=== PATIENT | male | born 1935 | race Caucasian/White ===

== ENCOUNTER 2017-08-02 14:24 | Inpatient (IN) ==
--- NOTE | 2017-08-03 14:21 | Internal Med History&Physical ---
Date of Encounter: 08/03/17 Time of Encounter: 14:19 Assessment and Plan (1) Status post total left knee replacement Current visit: Yes Status: Acute continue current pain meds. PT/OT eval and treat. f/u with ortho as scheduled. (2) COPD (chronic obstructive pulmonary disease) Current visit: No Status: Chronic stable. continue inhaled meds Qualifiers: COPD type: emphysema Emphysema type: unspecified Qualified Code(s): J43.9 - Emphysema, unspecified (3) Hypertension Current visit: No Status: Chronic controlled with current meds. monitor BP Qualifiers: Hypertension type: essential hypertension Qualified Code(s): I10 - Essential (primary) hypertension Internal Medicine - H&P: HPI Chief complaint: s/p LTKR Admitted From: Hospital to Hospital Transfer Plans for Post Hospital Care: Home History of present illness: Mr. Terrazas is a 82 year old male presents to rehab for PT/OT s/p left TKR on . past medical hx includes: COPD, HTN, sleep apnea, RTKR. states pain is controlled with current pain meds. appetite and hydration maintained. last BM this am after having an enema. denies fever, chills, NVD, SOB or chest pain. / Past Med Surg Social Fam HX - Past Medical History Medical history: asthma, COPD, hypertension, other Psychiatric history: no psych history - Past Surgical History Surgical History: orthopedic, other - Social History Smoking Status: Never smoker Smokeless Tobacco Status: No Alcohol use: none Drug use: none Internal Medicine - H&P: Meds Albuterol Sulfate [Proair Hfa] 2 puff IH Q4H PRN 04/13/16 [History] Amlodipine Besylate 10 mg PO DAILY 04/13/16 [History] Aspirin 81 mg PO 2100 04/13/16 [History] Atenolol [Tenormin] 50 mg PO TID 04/13/16 [History] Budesonide/Formoterol 160/4.5 [Symbicort 160/4.5] 2 puff IH BIDR 04/13/16 [ History] Fluticasone Propionate [Flonase Allergy Relief] 1 spray NS DAILY 04/13/16 [ History] Lisinopril/Hydrochlorothiazide [Zestoretic 10-12.5 mg Tablet] 1 each PO DAILY [History] Loratadine [Claritin] 10 mg PO 1200 04/13/16 [History] Montelukast Sodium 10 mg PO DAILY 04/13/16 [History] Multivitamin [Multivitamins] 1 each PO DAILY 04/13/16 [History] Naproxen Sodium [Aleve] 220 mg PO Q6HR PRN 04/13/16 [History] Ipratropium/Albuterol Neb [Duoneb] 3 ml IH Q6HR PRN 04/14/16 [History] Allopurinol [Zyloprim] 300 mg PO 1200 08/03/17 [History] Latanoprost [Xalatan] 2.5 ml OP 2100 08/03/17 [History] Tamsulosin HCl [Flomax] 0.4 mg PO HS 08/03/17 [History] Timolol [Betimol] 1 drop OP DAILY 08/03/17 [History] Umeclidinium Greene [Incruse Ellipta] 62.5 mcg IH DAILY 08/03/17 [History] 3 Allergy/AdvReac Type Severity Reaction Status Date / Time No Known Allergies Allergy Unverified 12/29/15 13:48 All Systems PM: A 10-system review of systems was performed and is negative for pertinent findings except as documented above in the HPI. - Constitutional Constitutional: no chills, no fever(s), no night sweats - EENT Eyes: no change in vision, no discharge, no pain, no photophobia Ears: no ear discharge, no ear pain, no tinnitus Nose, mouth and throat: no dysphagia, no nasal discharge, no neck pain, no sore throat - Cardiovascular Cardiovascular ROS IM: no chest pain, no diaphoresis, no dyspnea, no lightheadedness, no palpitations, no syncope - Respiratory Respiratory: no cough, no dyspnea, no wheezing, no excessive phlegm production - Gastrointestinal Gastrointestinal: no abdominal pain, no diarrhea, no hematemesis, no hematochezia, no melena, no nausea, no vomiting - Musculoskeletal Musculoskeletal ROS IM: no numbness, no tingling - Integumentary Integumentary IM: no rash, no unusual bruising - Neurological Neurological ROS: no confusion, no convulsions, no focal weakness, no numbness, no tingling, no tremor(s) - Hematologic/Lymphatic Hematologic/Lymphatic: no easy bruising - Constitutional Vitals: Temp Pulse Resp BP Pulse Ox 98.1 F 60 16 104/59 91 08/03/17 12:31 08/03/17 12:31 08/03/17 12:31 08/03/17 12:31 08/03/17 12:31 General appearance: Present: A&O X 3, pleasant, no acute distress, answers questions appropriately - Head Head exam: Present: atraumatic, normocephalic - Eye Eye exam: Present: PERRL, conjuntiva pink, sclera anicteric Pupils: Present: PERRL - Neck Neck exam general surgery: Present: supple, trachea midline. Absent: lymphadenopathy - Respiratory Respiratory exam: Present: CTAB. Absent: accessory muscle use, rales, rhonchi, wheezes - Cardiovascular Cardiovascular exam: Present: RRR, +S1, +S2. Absent: diastolic murmur, gallop, rubs, systolic murmur - GI/Abdominal GI/Abdominal exam: Present: normal bowel sounds, soft, no peritoneal signs. Absent: distended, tenderness - Extremities Exam Extremities exam: Present: warm, radial pulses palpable and symmetrical. Absent : calf tenderness, cyanotic, pedal edema Additional comments: left knee incision dry and intact. significant amt of bruising from thigh to khan area. small amt of edema surrounding knee. no signs of infection. - Neurological Exam Neurological exam: Present: CN II-XII intact, oriented X3, no focal deficits. Absent: pronater drift, facial droop, speech deficit - Skin Skin exam: Present: dry, intact
[2017-08-03] MEDS: *HR* OxyCODONE Immed Rel 5 MG TABLET PO PRN (17:07)
[2017-08-03] MEDS: Aspirin 81 MG TAB.CHEW PO SCH (22:40)
[2017-08-03] MEDS: Budesonide/Formoterol 160/4.5 MDI IH SCH (22:42)
[2017-08-03] MEDS: Latanoprost 2.5 ML BOTTLE BOTH EYES SCH (22:45)
[2017-08-03] MEDS: Ipratropium/Albuterol Neb 3 ML IH PRN (23:03)
[2017-08-04 05:11] LABS: Basophils % 0.1 %; Eosinophils # 0.1 K/mcL (0.0-0.6); Eosinophils % 1.4 %; Hematocrit 28.4 % (37.5-50.1); Immature Granulocytes % 0.6 % (0-4); Lymphocytes # 0.7 K/mcL (0.6-4.6); Lymphocytes % 8.7 %; Mean Corpuscular HGB Conc 35.2 g/dL (31.6-35.5); Mean Corpuscular Hemoglobin 31.5 pg (28.0-33.3); Mean Corpuscular Volume 89.6 fL (83.0-100.0); Monocytes # 0.8 K/mcL (0.0-1.3); Monocytes % 9.7 %; Neutrophils # 6.3 K/mcL (1.6-8.9); Platelet Count 186 K/mcL (140-400); Red Blood Count 3.17 M/mcL (4.19-5.50); Red Cell Distribution Width 14.3 % (11.5-14.5); Segmented Neutrophils % 79.5 %
[2017-08-04 05:17] LABS: INR 1.3; Prothrombin Time 13.7 Seconds (9.4-12.1)
[2017-08-04 05:20] LABS: Activated Partial Thrombo Time 27.4 Seconds (26.0-36.0)
[2017-08-04 05:26] LABS: Calcium 8.9 mg/dL (8.6-10.8); Potassium 3.8 mEq/L (3.5-4.5)
[2017-08-04] MEDS: *HR* OxyCODONE Immed Rel 5 MG TABLET PO PRN ×3 (07:19→16:38)
[2017-08-04] MEDS: Ipratropium/Albuterol Neb 3 ML IH PRN (08:55)
[2017-08-04] MEDS: Budesonide/Formoterol 160/4.5 MDI IH SCH ×2 (08:59→21:41)
[2017-08-04] MEDS: amLODIPine 5 MG TABLET PO SCH (09:18)
[2017-08-04] MEDS: (Umeclidinium Bromide [Incruse Ellipta] 62.5 MCG) IH SCH (09:18)
[2017-08-04] MEDS: Multivit/Ca/Min/Fe/FA 1 TAB TABLET PO SCH (09:18)
[2017-08-04] MEDS: Fluticasone Propionate Nasal 50 MCG/SPRAY BOTTLE NS SCH (09:19)
--- NOTE | 2017-08-04 12:55 | Internal Med Progress Note ---
Date of Encounter: 08/04/17 Time of Encounter: 12:52 - Assessment and plan (1) Status post total left knee replacement Current Visit: Yes Status: Acute Assessment and plan: Left knee remains slightly swollen with moderate amount of ecchymosis noted. Surgical incisions appear dry and intact. We will continue to mobilize patient with physical therapy. We will continue with icing machine while in bed. (2) BPH (benign prostatic hyperplasia) Current Visit: Yes Status: Acute Assessment and plan: Patient with symptoms that relate to a history of BPH. Patient currently on Flomax but states he has never seen a urologist in the past. Patient complaints of hesitation during urination and states he gets up 3-5 times during the night for urination. Patient obtained a bladder scan which showed no residual postvoid. We will continue on Flomax. We will obtain a PSA with morning labs. Qualifiers: Lower urinary tract symptom presence: symptoms present Lower urinary tract symptom detail: nocturia Qualified Code(s): N40.1 - Benign prostatic hyperplasia with lower urinary tract symptoms; R35.1 - Nocturia; R35.1 - Nocturia (3) COPD (chronic obstructive pulmonary disease) Current Visit: No Status: Chronic Assessment and plan: No acute issues. Patient denies any shortness of breath or productive cough. Lungs are clear throughout upper paige and diminished at the bases. We will continue on current medications Qualifiers: COPD type: emphysema Emphysema type: unspecified Qualified Code(s): J43.9 - Emphysema, unspecified (4) CHF (congestive heart failure) Current Visit: No Status: Acute Assessment and plan: No acute issues. Patient's lungs are clear with diminished bases. Patient denies any dyspnea on exertion or orthopnea. We will continue on current medications. Qualifiers: Congestive heart failure type: systolic Congestive heart failure chronicity : unspecified congestive heart failure chronicity Qualified Code(s): I50.20 - Unspecified systolic (congestive) heart failure (5) Hypertension Current Visit: No Status: Chronic Assessment and plan: Vital signs are stable. We will continue on current medications. Qualifiers: Hypertension type: essential hypertension Qualified Code(s): I10 - Essential (primary) hypertension - Subjective Interval history: Patient states that his pain to his left knee has been minimal and well controlled with current medications. Patient states he has slight limited range of motion due to swelling on left knee. Left knee continues with the continuous icing. Patient does complain of recent hesitation during urination. Upon questioning patient relates long history of nocturia - Constitutional Vitals: Temp Pulse Resp BP Pulse Ox 97.7 F 64 16 122/67 92 08/04/17 11:54 08/04/17 11:54 08/04/17 11:54 08/04/17 11:54 08/04/17 11:54 General appearance: Present: A&O X 3, pleasant, no acute distress, answers questions appropriately - Head Head exam: Present: atraumatic, normocephalic - Eye Eye exam: Present: PERRL, conjuntiva pink, sclera anicteric Pupils: Present: PERRL - Neck Neck exam general surgery: Present: supple, trachea midline. Absent: lymphadenopathy - Respiratory Respiratory exam: Present: CTAB. Absent: accessory muscle use, rales, rhonchi, wheezes - Cardiovascular Cardiovascular exam: Present: RRR, +S1, +S2. Absent: diastolic murmur, gallop, rubs, systolic murmur - GI/Abdominal GI/Abdominal exam: Present: normal bowel sounds, soft, no peritoneal signs. Absent: distended, tenderness - exam: Present: normal inspection Additional comments: Patient had bladder scan that was performed which showed no residual - Extremities Exam Extremities exam: Present: warm, radial pulses palpable and symmetrical. Absent : calf tenderness, cyanotic, pedal edema - Neurological Exam Neurological exam: Present: CN II-XII intact, oriented X3, no focal deficits. Absent: pronater drift, facial droop, speech deficit - Skin Skin exam: Present: dry, intact Internal Medicine: Result - Labs CBC & Chem 7: 08/04/17 04:30 08/04/17 04:30 Labs: Short CBC 08/04/17 Range/Units 04:30 WBC 7.9 (4.3-11.1) K/mcL Hgb 10.0 L (12.9-16.9) g/dL Hct 28.4 L (37.5-50.1) % Plt Count 186 (140-400) K/mcL Neutrophils # 6.3 (1.6-8.9) K/mcL BMP 08/04/17 04:30 Sodium 128 L Potassium 3.8 Chloride 89 L Carbon Dioxide 28 BUN 49 H Creatinine 1.64 H Glucose 110 H Calcium 8.9 - ABG Interpretation ABG results: PT/INR, D-dimer PT 13.7 Seconds (9.4-12.1) H 08/04/17 04:30 - VTE Documentation of Mechanical Device: Graduated compression elastic hosiery Consult Discharge Plan - Plan Referrals: Carl Camp MD [Primary Care Provider] -
[2017-08-04] MEDS: Loratadine 10 MG TABLET PO SCH (13:23)
[2017-08-04 20:33] LABS: Bilirubin,Urine Negative (Negative); Blood,Urine Negative (Negative); Clarity,Urine Clear (Clear); Color,Urine Amber (Yellow); Glucose,Urine (UA) Normal (Normal); Ketones,Urine Negative (Negative); Leukocyte Esterase,Urine Negative (Negative); Nitrite,Urine Negative (Negative); Protein,Urine Negative (Neg-Trace); Urobilinogen,Urine Normal (Normal)
[2017-08-04] MEDS: Latanoprost 2.5 ML BOTTLE BOTH EYES SCH (21:41)
[2017-08-04] MEDS: Aspirin 81 MG TAB.CHEW PO SCH (21:41)
[2017-08-05 05:51] LABS: Albumin 2.9 g/dL (3.5-5.0); Albumin/Globulin Ratio 0.9 (1.1-2.2); Bilirubin,Total 1.5 mg/dL (0.2-1.2); Calcium 8.7 mg/dL (8.6-10.8); Globulin 3.2 g/dL (2.4-3.5); Potassium 3.8 mEq/L (3.5-4.5); Total Protein 6.1 g/dL (6.0-8.3)
[2017-08-05] MEDS: Budesonide/Formoterol 160/4.5 MDI IH SCH ×2 (10:10→22:50)
[2017-08-05] MEDS: (Umeclidinium Bromide [Incruse Ellipta] 62.5 MCG) IH SCH (10:11)
[2017-08-05] MEDS: Ipratropium/Albuterol Neb 3 ML IH PRN (10:56)
[2017-08-05] MEDS: Acetaminophen 325 MG TABLET PO SCH ×2 (10:59→18:54)
[2017-08-05] MEDS: amLODIPine 5 MG TABLET PO SCH (10:59)
[2017-08-05] MEDS: Fluticasone Propionate Nasal 50 MCG/SPRAY BOTTLE NS SCH (11:00)
[2017-08-05] MEDS: Multivit/Ca/Min/Fe/FA 1 TAB TABLET PO SCH (11:00)
[2017-08-05] MEDS ORDERED: Furosemide 20 MG TABLET PO ONE (11:41)
--- NOTE | 2017-08-05 11:51 | Internal Med Progress Note ---
Date of Encounter: 08/05/17 Time of Encounter: 11:49 - Assessment and plan (1) Status post total left knee replacement Current Visit: Yes Status: Acute Assessment and plan: -Left knee remains slightly swollen with moderate amount of ecchymosis noted. -Surgical incisions appear dry and intact. -We will continue to mobilize patient with physical therapy. -We will continue with icing machine while in bed. (2) Hyponatremia Current Visit: Yes Status: Acute Assessment and plan: - hypotonic, in the setting of CHF and RICHARD - Echo reviewed back in may showed diastolic CHF - Unsure of dry weight - discontinued Naproxyen and started Tylenol - correction of the underlying conditions and will recheck tomorrow morning with another BMP (3) Acute on chronic kidney failure Current Visit: Yes Status: Acute Assessment and plan: - most likely pre-renal in the setting of diastolic renal failure, mild to moderate - unsure if chronic failure is also present - correction of CHF related fluid overload and will recheck labs tomorrow with BMP Qualifiers: Acute renal failure type: unspecified Chronic kidney disease stage: stage 3 (moderate) Qualified Code(s): N17.9 - Acute kidney failure, unspecified; N18.3 - Chronic kidney disease, stage 3 (moderate); N18.3 - Chronic kidney disease, stage 3 (moderate) (4) Hypoxia Current Visit: No Status: Acute Assessment and plan: - unsure if chronic vs acute on chronic - PE showed clear lungs bilaterally - continue with oxygen as needed, with titration per nursing - if anxiety related to COPD, pt can take xanax 0.25mg short acting to calm him down. discussed to only use in extreme cases (5) Constipation Current Visit: Yes Status: Acute Assessment and plan: - restarting stool softeners - senna Qualifiers: Constipation type: drug induced constipation Qualified Code(s): K59.03 - Drug induced constipation (6) COPD (chronic obstructive pulmonary disease) Current Visit: No Status: Chronic Assessment and plan: - Controlled hypoxia -Patient denies any shortness of breath or productive cough. -Lungs are clear throughout upper paige and diminished at the bases. -We will continue on current medications Qualifiers: COPD type: emphysema Emphysema type: unspecified Qualified Code(s): J43.9 - Emphysema, unspecified (7) Hypertension Current Visit: No Status: Chronic Assessment and plan: Vital signs are stable. We will continue on current medications. Qualifiers: Hypertension type: essential hypertension Qualified Code(s): I10 - Essential (primary) hypertension (8) CHF (congestive heart failure) Current Visit: No Status: Acute Assessment and plan: Echo reviewed - strict in/out and daily weights - 20mg of lasix PO to diurese some of the fluids out and help overall hyponatremia and RICHARD - Continue to monitor labs daily and will add BNP Qualifiers: Congestive heart failure type: diastolic Congestive heart failure chronicity: unspecified congestive heart failure chronicity Qualified Code(s) : I50.30 - Unspecified diastolic (congestive) heart failure (9) BPH (benign prostatic hyperplasia) Current Visit: Yes Status: Acute Assessment and plan: Patient with symptoms that relate to a history of BPH. Patient currently on Flomax but states he has never seen a urologist in the past. Patient complaints of hesitation during urination and states he gets up 3-5 times during the night for urination. Patient obtained a bladder scan which showed no residual postvoid. We will continue on Flomax. We will obtain a PSA with morning labs. Qualifiers: Lower urinary tract symptom presence: symptoms present Lower urinary tract symptom detail: nocturia Qualified Code(s): N40.1 - Benign prostatic hyperplasia with lower urinary tract symptoms; R35.1 - Nocturia; R35.1 - Nocturia - Time Spent With Patient 25 - 35 minutes - Subjective Interval history: pt seen in rehab, participating with exercises. Reporting getting shortness of breath. Also indicated uncontrolled pain in the left lower extremity and some blistering. He did report increase in swelling in the lower extremity as well. apetiet is intact, but hasn't had a BM for a while now. Per nursing, had diarrhea in the past couple of days secondary to stool softners which was discontinued. He is still taking narcaotics and that might have delayed his BM - Constitutional Vitals: Temp Pulse Resp BP Pulse Ox 97.9 F 53 16 107/65 97 08/05/17 07:25 08/05/17 07:25 08/05/17 07:25 08/05/17 07:25 08/05/17 07:25 General appearance: Present: A&O X 3, pleasant, no acute distress, answers questions appropriately - Head Head exam: Present: atraumatic, normocephalic - Eye Eye exam: Present: PERRL, conjuntiva pink, sclera anicteric Pupils: Present: PERRL - Neck Neck exam general surgery: Present: supple, trachea midline. Absent: lymphadenopathy - Respiratory Respiratory exam: Present: CTAB. Absent: accessory muscle use, rales, rhonchi, wheezes - Cardiovascular Cardiovascular exam: Present: RRR, +S1, +S2. Absent: diastolic murmur, gallop, rubs, systolic murmur - GI/Abdominal GI/Abdominal exam: Present: distended, normal bowel sounds, soft, no peritoneal signs. Absent: tenderness - Extremities Exam Additional comments: lower left extremity swollen at the site of the knee surgical sight. There is + 2 pitting edema bilaterally. There is left medial bulla, none friable/intact. Appears to be related to skin trauma at this time - Skin Skin exam: Present: vesicles Additional comments: Bulla as indicated above Internal Medicine: Result - Labs CBC & Chem 7: 08/04/17 04:30 08/05/17 05:00 Labs: BMP 08/05/17 05:00 Sodium 124 L Potassium 3.8 Chloride 88 L Carbon Dioxide 25 BUN 63 H D Creatinine 1.75 H Glucose 104 H Calcium 8.7 Liver Function 08/05/17 Range/Units 05:00 Total Bilirubin 1.5 H (0.2-1.2) mg/dL AST 24 (5-34) Units/L ALT 15 (0-55) Units/L Alkaline Phosphatase 84 (38-126) Units/L Albumin 2.9 L (3.5-5.0) g/dL Urine 08/04/17 Range/Units 19:00 Urine Color Angelique A (Yellow) Urine Clarity Clear (Clear) Urine pH 5.0 (5.0-8.0) pH Units Ur Specific [place] 1.020 (1.010-1.025) Urine Protein Negative (Neg-Trace) mg/dL Urine Glucose (UA) Normal (Normal) mg/dL - ABG Interpretation ABG results: PT/INR, D-dimer PT 13.7 Seconds (9.4-12.1) H 08/04/17 04:30 - VTE Documentation of Mechanical Device: Graduated compression elastic hosiery Consult Discharge Plan - Plan Referrals: Carl Camp MD [Primary Care Provider] -
[2017-08-05] MEDS: Sennosides 8.6 MG TABLET PO SCH (14:50)
[2017-08-05] MEDS: Loratadine 10 MG TABLET PO SCH (14:51)
[2017-08-05] MEDS: Latanoprost 2.5 ML BOTTLE BOTH EYES SCH (22:50)
[2017-08-05] MEDS: Aspirin 81 MG TAB.CHEW PO SCH (22:50)
[2017-08-06] MEDS: Acetaminophen 325 MG TABLET PO SCH ×3 (01:00→17:01)
[2017-08-06] MEDS: *HR* OxyCODONE Immed Rel 5 MG TABLET PO PRN ×2 (01:54→22:50)
[2017-08-06 05:10] LABS: Hematocrit 28.6 % (37.5-50.1); Mean Corpuscular Hemoglobin 31.1 pg (28.0-33.3); Mean Corpuscular Volume 88.8 fL (83.0-100.0); Mean Platelet Volume 9.3 fL (9.4-12.4); Platelet Count 175 K/mcL (140-400); Red Blood Count 3.22 M/mcL (4.19-5.50); Red Cell Distribution Width 14.2 % (11.5-14.5)
[2017-08-06 09:39] LABS: Calcium 8.3 mg/dL (8.6-10.8); Potassium 3.7 mEq/L (3.5-4.5)
[2017-08-06] MEDS: Sennosides 8.6 MG TABLET PO SCH (10:06)
[2017-08-06] MEDS: amLODIPine 5 MG TABLET PO SCH (10:06)
[2017-08-06] MEDS: Multivit/Ca/Min/Fe/FA 1 TAB TABLET PO SCH (10:06)
[2017-08-06] MEDS: Fluticasone Propionate Nasal 50 MCG/SPRAY BOTTLE NS SCH (10:07)
[2017-08-06] MEDS: (Umeclidinium Bromide [Incruse Ellipta] 62.5 MCG) IH SCH (10:07)
[2017-08-06] MEDS: Budesonide/Formoterol 160/4.5 MDI IH SCH ×2 (10:07→22:49)
[2017-08-06] MEDS ORDERED: Furosemide 20 MG TABLET PO ONE (11:20)
--- NOTE | 2017-08-06 11:20 | Internal Med Progress Note ---
Date of Encounter: 08/06/17 Time of Encounter: 11:18 - Assessment and plan (1) Status post total left knee replacement Current Visit: Yes Status: Acute Assessment and plan: -Left knee remains slightly swollen with moderate amount of ecchymosis noted. -Surgical incisions appear dry and intact. -We will continue to mobilize patient with physical therapy. -We will continue with icing machine while in bed. (2) Hyponatremia Current Visit: Yes Status: Acute Assessment and plan: - hypotonic, in the setting of CHF and RICHARD - Echo reviewed back in may showed diastolic CHF - Unsure of dry weight at this time - discontinued Naproxyen and started Tylenol - correction of the underlying conditions - Stable at 124, will continue to monitor daily (3) Acute on chronic kidney failure Current Visit: Yes Status: Acute Assessment and plan: - most likely pre-renal in the setting of diastolic heart failure, mild to moderate - unsure if chronic kidney failureis present and pt denied being told that in the past, unsure of what baseline Cr is - Continue to correct CHF, pt responding to diuretics - Improved Cr Qualifiers: Acute renal failure type: unspecified Chronic kidney disease stage: stage 3 (moderate) Qualified Code(s): N17.9 - Acute kidney failure, unspecified; N18.3 - Chronic kidney disease, stage 3 (moderate); N18.3 - Chronic kidney disease, stage 3 (moderate) (4) Hypoxia Current Visit: No Status: Acute Assessment and plan: - unsure if chronic vs acute on chronic - PE showed clear lungs bilaterally - continue with oxygen as needed, with titration per nursing - if anxiety related to COPD, pt can take xanax 0.25mg short acting to calm him down. discussed to only use in extreme cases (5) Constipation Current Visit: Yes Status: Acute Assessment and plan: - restarting stool softeners - senna - added miralax daily now Qualifiers: Constipation type: drug induced constipation Qualified Code(s): K59.03 - Drug induced constipation (6) COPD (chronic obstructive pulmonary disease) Current Visit: No Status: Chronic Assessment and plan: - Controlled hypoxia -Patient denies any shortness of breath or productive cough. -Lungs are clear throughout upper pa[place] and diminished at the bases. -We will continue on current medications Qualifiers: COPD type: emphysema Emphysema type: unspecified Qualified Code(s): J43.9 - Emphysema, unspecified (7) Hypertension Current Visit: No Status: Chronic Assessment and plan: Vital signs are stable. - may hold off on meds if low BP Qualifiers: Hypertension type: essential hypertension Qualified Code(s): I10 - Essential (primary) hypertension (8) CHF (congestive heart failure) Current Visit: No Status: Acute Assessment and plan: Echo reviewed - strict in/out and daily weights - 20mg of lasix PO to diurese yesterday, resulted in improved Cr - Unsure of output, but pt weight dropped from 106.5 to 103.9 - Improved Cr - BNP elevated at 300+ in the setting of obesity, suggestive of acute exacerbation - Give diastolic failure, with preserved EF, will continue to diurese gently - Continue to monitor labs daily Qualifiers: Congestive heart failure type: diastolic Congestive heart failure chronicity: unspecified congestive heart failure chronicity Qualified Code(s) : I50.30 - Unspecified diastolic (congestive) heart failure (9) BPH (benign prostatic hyperplasia) Current Visit: Yes Status: Acute Assessment and plan: Patient with symptoms that relate to a history of BPH. Patient currently on Flomax but states he has never seen a urologist in the past. Patient complaints of hesitation during urination and states he gets up 3-5 times during the night for urination. Patient obtained a bladder scan which showed no residual postvoid. We will continue on Flomax. - Elevated PSA at 8+. No signs of urinary obstruction - Will defer to outpatient management of this elevated PSA Qualifiers: Lower urinary tract symptom presence: symptoms present Lower urinary tract symptom detail: nocturia Qualified Code(s): N40.1 - Benign prostatic hyperplasia with lower urinary tract symptoms; R35.1 - Nocturia; R35.1 - Nocturia - Time Spent With Patient 25 - 35 minutes - Subjective Interval history: pt seen in his room, eating breakfast, and reports that he feels much better today. reported that he has been able to urinate adequate amounts of urine. His appetie is somewhat down, but still able to eat, denied any CP/SOB - He had BM yesterday and reported that he was able to tolerate the Stool softener - Constitutional Vitals: Temp Pulse Resp BP Pulse Ox 97.9 F 60 18 112/57 96 08/05/17 19:00 08/05/17 19:00 08/05/17 19:00 08/05/17 19:00 08/05/17 19:00 General appearance: Present: A&O X 3, pleasant, no acute distress, answers questions appropriately - Head Head exam: Present: atraumatic, normocephalic - Eye Eye exam: Present: PERRL, conjuntiva pink, sclera anicteric Pupils: Present: PERRL - Neck Neck exam general surgery: Present: supple, trachea midline. Absent: lymphadenopathy - Respiratory Respiratory exam: Present: CTAB. Absent: accessory muscle use, rales, rhonchi, wheezes - Cardiovascular Cardiovascular exam: Present: RRR, +S1, +S2. Absent: diastolic murmur, gallop, rubs, systolic murmur - GI/Abdominal GI/Abdominal exam: Present: normal bowel sounds, soft, no peritoneal signs. Absent: distended, tenderness - Extremities Exam Extremities exam: Present: joint swelling, pedal edema, tenderness, warm Additional comments: couple of large vessicles consistent with traumatic bulla, stable from yesterday Pitting edema improved from yesterday, still 1+ at least on the right and 2+ on the left - Neurological Exam Neurological exam: Present: CN II-XII intact, oriented X3, no focal deficits. Absent: pronater drift, facial droop, speech deficit - Skin Skin exam: Present: dry, intact Internal Medicine: Result - Labs CBC & Chem 7: 08/06/17 05:04 08/06/17 05:04 Labs: Short CBC 08/06/17 Range/Units 05:04 WBC 5.8 (4.3-11.1) K/mcL Hgb 10.0 L (12.9-16.9) g/dL Hct 28.6 L (37.5-50.1) % Plt Count 175 (140-400) K/mcL BMP 08/06/17 05:04 Sodium 124 L Potassium 3.7 Chloride 89 L Carbon Dioxide 23 BUN 63 H Creatinine 1.46 H Glucose 110 H Calcium 8.3 L - ABG Interpretation ABG results: PT/INR, D-dimer PT 13.7 Seconds (9.4-12.1) H 08/04/17 04:30 - VTE Documentation of Mechanical Device: Graduated compression elastic hosiery Consult Discharge Plan - Plan Referrals: Carl Camp MD [Primary Care Provider] -
[2017-08-06] MEDS: Loratadine 10 MG TABLET PO SCH (13:54)
[2017-08-06] MEDS: Aspirin 81 MG TAB.CHEW PO SCH (22:48)
[2017-08-06] MEDS: Latanoprost 2.5 ML BOTTLE BOTH EYES SCH (22:49)
[2017-08-06] MEDS: ALPRAZolam 0.25 MG TABLET PO PRN (22:50)
[2017-08-06] MEDS: Ipratropium/Albuterol Neb 3 ML IH PRN (22:50)
[2017-08-07] MEDS: Acetaminophen 325 MG TABLET PO SCH ×3 (02:15→16:40)
[2017-08-07 05:26] LABS: Basophils % 0.2 %; Eosinophils # 0.1 K/mcL (0.0-0.6); Eosinophils % 1.5 %; Hematocrit 30.6 % (37.5-50.1); Hemoglobin 10.5 g/dL (12.9-16.9); Immature Granulocytes % 0.5 % (0-4); Lymphocytes # 0.6 K/mcL (0.6-4.6); Lymphocytes % 11.5 %; Mean Corpuscular HGB Conc 34.3 g/dL (31.6-35.5); Mean Corpuscular Hemoglobin 30.8 pg (28.0-33.3); Mean Corpuscular Volume 89.7 fL (83.0-100.0); Mean Platelet Volume 9.6 fL (9.4-12.4); Monocytes # 0.6 K/mcL (0.0-1.3); Neutrophils # 4.2 K/mcL (1.6-8.9); Platelet Count 202 K/mcL (140-400); Red Blood Count 3.41 M/mcL (4.19-5.50); Red Cell Distribution Width 14.3 % (11.5-14.5); Segmented Neutrophils % 76.3 %
[2017-08-07] MEDS: *HR* OxyCODONE Immed Rel 5 MG TABLET PO PRN (05:26)
[2017-08-07 05:47] LABS: Chloride 92 mEq/L (98-109); Potassium 3.4 mEq/L (3.5-4.5); Sodium 130 mEq/L (136-145)
[2017-08-07 05:48] LABS: BUN/Creatinine Ratio 44 (6-26); Blood Urea Nitrogen 47 mg/dL (8-26); Calcium 8.9 mg/dL (8.6-10.8); Carbon Dioxide 26 mEq/L (19-29); Glucose 104 mg/dL (70-99); Osmolality,Calculated 283 (280-300); eGFR For African Americans > 60 (> 60); eGFR For Non-African Americans > 60 (> 60)
[2017-08-07] MEDS: Multivit/Ca/Min/Fe/FA 1 TAB TABLET PO SCH (08:29)
[2017-08-07] MEDS: amLODIPine 5 MG TABLET PO SCH (08:30)
[2017-08-07] MEDS: Fluticasone Propionate Nasal 50 MCG/SPRAY BOTTLE NS SCH (08:33)
[2017-08-07] MEDS: Sennosides 8.6 MG TABLET PO SCH (08:33)
[2017-08-07] MEDS: (Umeclidinium Bromide [Incruse Ellipta] 62.5 MCG) IH SCH (08:33)
[2017-08-07] MEDS: Budesonide/Formoterol 160/4.5 MDI IH SCH ×2 (08:43→21:09)
[2017-08-07] MEDS: Loratadine 10 MG TABLET PO SCH (11:58)
--- NOTE | 2017-08-07 14:22 | Internal Med Progress Note ---
Date of Encounter: 08/07/17 Time of Encounter: 14:20 - Assessment and plan (1) Status post total left knee replacement Current Visit: Yes Status: Acute Assessment and plan: -Left knee remains slightly swollen with moderate amount of ecchymosis noted. -Surgical incisions appear dry and intact. -We will continue to mobilize patient with physical therapy. -We will continue with icing machine while in bed. (2) Hyponatremia Current Visit: Yes Status: Acute Assessment and plan: - hypotonic, in the setting of CHF and RICHARD initially - Echo reviewed back in may showed diastolic CHF - Unsure of dry weight still - discontinued Naproxyen and started Tylenol TID scheduled, discussed with pt to stay away from scheduled NSAIDS in the future - correction of the underlying conditions - Improved to 130 now, will continue to monitor daily (3) Acute kidney failure Current Visit: Yes Status: Acute Assessment and plan: - Pt had an elevated Cr at max of 1.7 - Pre-renal RICHARD, most likely in the setting of CHF along with renal due to NSAIDS - Resopnded well to diuresis and stopped naproxen - Now resolved with Cr. 1.0 Qualifiers: Acute renal failure type: unspecified Qualified Code(s): N17.9 - Acute kidney failure, unspecified (4) Hypoxia Current Visit: No Status: Acute Assessment and plan: - unsure if chronic vs acute on chronic, but CHF could have caused some of this to a degree - PE showed clear lungs bilaterally - if anxiety related to COPD, pt can take xanax 0.25mg short acting to calm him down. discussed to only use in extreme cases - Now on RA, will continue to monitor (5) Constipation Current Visit: Yes Status: Acute Assessment and plan: - restarting stool softeners - senna - added miralax daily now Qualifiers: Constipation type: drug induced constipation Qualified Code(s): K59.03 - Drug induced constipation (6) COPD (chronic obstructive pulmonary disease) Current Visit: No Status: Chronic Assessment and plan: - Controlled hypoxia -Patient denies any shortness of breath or productive cough. -Lungs are clear throughout upper paige and diminished at the bases. -We will continue on current medications Qualifiers: COPD type: emphysema Emphysema type: unspecified Qualified Code(s): J43.9 - Emphysema, unspecified (7) Hypertension Current Visit: No Status: Chronic Assessment and plan: Vital signs are stable. - may hold off on meds if low BP Qualifiers: Hypertension type: essential hypertension Qualified Code(s): I10 - Essential (primary) hypertension (8) CHF (congestive heart failure) Current Visit: No Status: Acute Assessment and plan: Echo reviewed - strict in/out and daily weights - 20mg of lasix PO to diurese on two days, resulted in improved Cr - Unsure of weight, but pt appear to have diuresed a total of 1.8L - BNP elevated at 300+ in the setting of obesity, suggestive of acute exacerbation - Given that RICHARD has resolved, will only institute fluid restrictions, set to 2L daily - Continue to monitor labs daily, anticipate that this will continue to resolve on its own, if worsening, would recommend gentle diuretic of 20mg lasix PO Qualifiers: Congestive heart failure type: diastolic Congestive heart failure chronicity: unspecified congestive heart failure chronicity Qualified Code(s) : I50.30 - Unspecified diastolic (congestive) heart failure (9) BPH (benign prostatic hyperplasia) Current Visit: Yes Status: Acute Assessment and plan: Patient with symptoms that relate to a history of BPH. Patient currently on Flomax but states he has never seen a urologist in the past. Patient complaints of hesitation during urination and states he gets up 3-5 times during the night for urination. Patient obtained a bladder scan which showed no residual postvoid. We will continue on Flomax. - Elevated PSA at 8+. No signs of urinary obstruction - Will defer to outpatient management of this elevated PSA Qualifiers: Lower urinary tract symptom presence: symptoms present Lower urinary tract symptom detail: nocturia Qualified Code(s): N40.1 - Benign prostatic hyperplasia with lower urinary tract symptoms; R35.1 - Nocturia; R35.1 - Nocturia - Time Spent With Patient 25 - 35 minutes - Subjective Interval history: - pt seen in his room - Appetite is still low, but doesn't feel as nausiated as yesterday - Overall, feels much better than yesterday - NO GI or reported, and is urinating okay - Pain is controlled - Denied any SOB/CP as well - Plans to go home after rehab, has active lifestyle and independent with ADLs as discussed with the patient - Constitutional Vitals: Temp Pulse Resp BP Pulse Ox 96.6 F L 67 16 100/58 94 08/07/17 07:00 08/07/17 07:00 08/06/17 19:00 08/07/17 07:00 08/07/17 07:00 General appearance: Present: A&O X 3, pleasant, no acute distress, answers questions appropriately - Head Head exam: Present: atraumatic, normocephalic - Eye Eye exam: Present: PERRL, conjuntiva pink, sclera anicteric Pupils: Present: PERRL - Neck Neck exam general surgery: Present: supple, trachea midline. Absent: lymphadenopathy - Respiratory Respiratory exam: Present: CTAB. Absent: accessory muscle use, rales, rhonchi, wheezes - Cardiovascular Cardiovascular exam: Present: RRR, +S1, +S2. Absent: diastolic murmur, gallop, rubs, systolic murmur - GI/Abdominal GI/Abdominal exam: Present: distended, normal bowel sounds, soft, no peritoneal signs. Absent: tenderness - Extremities Exam Extremities exam: Present: pedal edema, warm, radial pulses palpable and symmetrical. Absent: calf tenderness, cyanotic Additional comments: bilateral pitting edema as before, with compression stuckings on, stength 5/5 upper and lower. - Neurological Exam Neurological exam: Present: CN II-XII intact, oriented X3, no focal deficits. Absent: pronater drift, facial droop, speech deficit - Skin Skin exam: Present: dry, intact Internal Medicine: Result - Labs CBC & Chem 7: 08/07/17 04:40 08/07/17 04:40 Labs: Short CBC 08/07/17 Range/Units 04:40 WBC 5.5 (4.3-11.1) K/mcL Hgb 10.5 L (12.9-16.9) g/dL Hct 30.6 L (37.5-50.1) % Plt Count 202 (140-400) K/mcL Neutrophils # 4.2 (1.6-8.9) K/mcL BMP 08/07/17 04:40 Sodium 130 L Potassium 3.4 L Chloride 92 L Carbon Dioxide 26 BUN 47 H D Creatinine 1.08 Glucose 104 H Calcium 8.9 - ABG Interpretation ABG results: PT/INR, D-dimer PT 13.7 Seconds (9.4-12.1) H 08/04/17 04:30 - VTE Documentation of Mechanical Device: Graduated compression elastic hosiery Consult Discharge Plan - Plan Referrals: Carl Camp MD [Primary Care Provider] -
[2017-08-07] MEDS: Aspirin 81 MG TAB.CHEW PO SCH (21:08)
[2017-08-07] MEDS: ALPRAZolam 0.25 MG TABLET PO PRN (21:09)
[2017-08-07] MEDS: Latanoprost 2.5 ML BOTTLE BOTH EYES SCH (21:10)
[2017-08-08] MEDS: Acetaminophen 325 MG TABLET PO SCH ×3 (01:20→17:32)
[2017-08-08 05:29] LABS: BUN/Creatinine Ratio 38 (6-26); Blood Urea Nitrogen 35 mg/dL (8-26); Calcium 8.9 mg/dL (8.6-10.8); Carbon Dioxide 27 mEq/L (19-29); Chloride 96 mEq/L (98-109); Glucose 111 mg/dL (70-99); Osmolality,Calculated 287 (280-300); Potassium 3.6 mEq/L (3.5-4.5); Sodium 134 mEq/L (136-145); eGFR For African Americans > 60 (> 60); eGFR For Non-African Americans > 60 (> 60)
[2017-08-08] MEDS: *HR* OxyCODONE Immed Rel 5 MG TABLET PO PRN ×3 (05:47→20:41)
[2017-08-08] MEDS: Sennosides 8.6 MG TABLET PO SCH (07:43)
[2017-08-08] MEDS: Fluticasone Propionate Nasal 50 MCG/SPRAY BOTTLE NS SCH (07:50)
[2017-08-08] MEDS: Multivit/Ca/Min/Fe/FA 1 TAB TABLET PO SCH (07:50)
[2017-08-08] MEDS: amLODIPine 5 MG TABLET PO SCH (07:50)
[2017-08-08] MEDS: (Umeclidinium Bromide [Incruse Ellipta] 62.5 MCG) IH SCH (07:54)
[2017-08-08] MEDS: Budesonide/Formoterol 160/4.5 MDI IH SCH ×2 (07:55→20:45)
--- NOTE | 2017-08-08 12:01 | Internal Med Progress Note ---
Date of Encounter: 08/08/17 Time of Encounter: 11:58 - Assessment and plan (1) Status post total left knee replacement Current Visit: Yes Status: Acute Assessment and plan: -Left knee remains slightly swollen with moderate amount of ecchymosis noted. -Surgical incisions appear dry and intact. -We will continue to mobilize patient with physical therapy. -We will continue with icing machine while in bed. - continue curent pain meds and will start robaxin for 5 days. (2) COPD (chronic obstructive pulmonary disease) Current Visit: No Status: Chronic Assessment and plan: - Controlled hypoxia -Patient denies any shortness of breath or productive cough. -Lungs are clear throughout upper pa[place] and diminished at the bases. -We will continue on current medications Qualifiers: COPD type: emphysema Emphysema type: unspecified Qualified Code(s): J43.9 - Emphysema, unspecified (3) Hypertension Current Visit: No Status: Chronic Assessment and plan: Vital signs are stable. continue current meds Qualifiers: Hypertension type: essential hypertension Qualified Code(s): I10 - Essential (primary) hypertension - Time Spent With Patient less than 15 minutes - Subjective Interval history: partiticpating well with therapy. medications controlling pain but c/o increased muscle pain in left thigh. large amt of bruising to thigh but improving. bowels started moving better yesterday. at bedside. - Constitutional Vitals: Temp Pulse Resp BP Pulse Ox 97.8 F 77 18 116/67 97 08/08/17 07:02 08/08/17 07:02 08/08/17 07:02 08/08/17 07:02 08/08/17 07:02 General appearance: Present: A&O X 3, pleasant, no acute distress, answers questions appropriately - Head Head exam: Present: atraumatic, normocephalic - Eye Eye exam: Present: PERRL, conjuntiva pink, sclera anicteric Pupils: Present: PERRL - Neck Neck exam general surgery: Present: supple, trachea midline. Absent: lymphadenopathy - Respiratory Respiratory exam: Present: CTAB. Absent: accessory muscle use, rales, rhonchi, wheezes - Cardiovascular Cardiovascular exam: Present: RRR, +S1, +S2. Absent: diastolic murmur, gallop, rubs, systolic murmur - GI/Abdominal GI/Abdominal exam: Present: normal bowel sounds, soft, no peritoneal signs. Absent: distended, tenderness - Extremities Exam Extremities exam: Present: warm, radial pulses palpable and symmetrical. Absent : calf tenderness, cyanotic, pedal edema Additional comments: left knee incsion dry and intact. no signs of infection. redness and edema to surrounding incision with bruising up to groin area. - Neurological Exam Neurological exam: Present: CN II-XII intact, oriented X3, no focal deficits. Absent: pronater drift, facial droop, speech deficit - Skin Skin exam: Present: dry, intact Internal Medicine: Result - Labs CBC & Chem 7: 08/07/17 04:40 08/08/17 05:00 Labs: BMP 08/08/17 05:00 Sodium 134 L Potassium 3.6 Chloride 96 L Carbon Dioxide 27 BUN 35 H D Creatinine 0.91 Glucose 111 H Calcium 8.9 - ABG Interpretation ABG results: PT/INR, D-dimer PT 13.7 Seconds (9.4-12.1) H 08/04/17 04:30 - VTE Documentation of Mechanical Device: Graduated compression elastic hosiery Consult Discharge Plan - Plan Referrals: Carl Camp MD [Primary Care Provider] -
[2017-08-08] MEDS: Loratadine 10 MG TABLET PO SCH (12:12)
[2017-08-08] MEDS: Methocarbamol 500 MG TABLET PO SCH (16:08)
[2017-08-08] MEDS: ALPRAZolam 0.25 MG TABLET PO PRN (20:40)
[2017-08-08] MEDS: Aspirin 81 MG TAB.CHEW PO SCH (20:40)
[2017-08-08] MEDS: Latanoprost 2.5 ML BOTTLE BOTH EYES SCH (20:44)
[2017-08-09] MEDS: Methocarbamol 500 MG TABLET PO SCH ×3 (01:19→17:29)
[2017-08-09] MEDS: Acetaminophen 325 MG TABLET PO SCH ×3 (01:19→17:29)
[2017-08-09 05:56] LABS: Basophils % 0.4 %; Eosinophils # 0.1 K/mcL (0.0-0.6); Eosinophils % 1.2 %; Hematocrit 30.1 % (37.5-50.1); Hemoglobin 10.1 g/dL (12.9-16.9); Immature Granulocytes % 1.2 % (0-4); Lymphocytes # 0.8 K/mcL (0.6-4.6); Lymphocytes % 15.9 %; Mean Corpuscular HGB Conc 33.6 g/dL (31.6-35.5); Mean Corpuscular Hemoglobin 31.3 pg (28.0-33.3); Mean Corpuscular Volume 93.2 fL (83.0-100.0); Mean Platelet Volume 8.5 fL (9.4-12.4); Monocytes # 0.5 K/mcL (0.0-1.3); Monocytes % 9.4 %; Neutrophils # 3.5 K/mcL (1.6-8.9); Platelet Count 194 K/mcL (140-400); Red Blood Count 3.23 M/mcL (4.19-5.50); Red Cell Distribution Width 14.5 % (11.5-14.5); Segmented Neutrophils % 71.9 %
[2017-08-09 06:11] LABS: Alanine Aminotransferase 19 Units/L (0-55); Alkaline Phosphatase 83 Units/L (38-126); Aspartate Amino Transferase 26 Units/L (5-34); BUN/Creatinine Ratio 30 (6-26); Bilirubin,Total 1.7 mg/dL (0.2-1.2); Blood Urea Nitrogen 30 mg/dL (8-26); Calcium 9.2 mg/dL (8.6-10.8); Carbon Dioxide 31 mEq/L (19-29); Chloride 97 mEq/L (98-109); Globulin 2.9 g/dL (2.4-3.5); Glucose 109 mg/dL (70-99); Osmolality,Calculated 291 (280-300); Potassium 4.6 mEq/L (3.5-4.5); Sodium 137 mEq/L (136-145); Total Protein 5.9 g/dL (6.0-8.3); eGFR For African Americans > 60 (> 60); eGFR For Non-African Americans > 60 (> 60)
[2017-08-09] MEDS: *HR* OxyCODONE Immed Rel 5 MG TABLET PO PRN ×3 (06:12→20:28)
[2017-08-09] MEDS: Budesonide/Formoterol 160/4.5 MDI IH SCH ×2 (08:23→20:27)
[2017-08-09] MEDS: Fluticasone Propionate Nasal 50 MCG/SPRAY BOTTLE NS SCH (08:24)
[2017-08-09] MEDS: amLODIPine 5 MG TABLET PO SCH (08:25)
[2017-08-09] MEDS: (Umeclidinium Bromide [Incruse Ellipta] 62.5 MCG) IH SCH (08:25)
[2017-08-09] MEDS: Multivit/Ca/Min/Fe/FA 1 TAB TABLET PO SCH (08:25)
[2017-08-09] MEDS: Sennosides 8.6 MG TABLET PO SCH (08:25)
--- NOTE | 2017-08-09 11:33 | Internal Med Progress Note ---
Date of Encounter: 08/09/17 Time of Encounter: 11:30 - Assessment and plan (1) Status post total left knee replacement Current Visit: Yes Status: Acute Assessment and plan: -Left knee incision moderate amount of ecchymosis, swelling, warmth and redness noted. will order atb and venous doppler. -We will continue with icing machine while in bed. - continue current pain meds and robaxin. (2) COPD (chronic obstructive pulmonary disease) Current Visit: No Status: Chronic Assessment and plan: -Patient denies any shortness of breath or productive cough. -We will continue on current medications Qualifiers: COPD type: emphysema Emphysema type: unspecified Qualified Code(s): J43.9 - Emphysema, unspecified (3) Hypertension Current Visit: No Status: Chronic Assessment and plan: Vital signs are stable. continue current meds Qualifiers: Hypertension type: essential hypertension Qualified Code(s): I10 - Essential (primary) hypertension (4) Cellulitis Current Visit: Yes Status: Acute Assessment and plan: doxycycline ordered. WBC normal. will monitor Qualifiers: Site of cellulitis: extremity Site of cellulitis of extremity: lower extremity Laterality: left Qualified Code(s): L03.116 - Cellulitis of left lower limb - Time Spent With Patient 25 - 35 minutes - Subjective Interval history: partiticpating well with therapy. medications controlling pain better today than yesterday after starting robaxin. large amt of bruising to thigh but improving. left knee incision draining mod amt of serous drainage with swelling and warmth and redness from lower thigh to mid calf area. 2 blisters lateral to incision. c/o calf pain. denies fever, chills, NVD. - Constitutional Vitals: Temp Pulse Resp BP Pulse Ox 98.0 F 67 16 132/52 92 08/09/17 07:26 08/09/17 07:26 08/09/17 07:26 08/09/17 07:26 08/09/17 07:26 General appearance: Present: A&O X 3, pleasant, no acute distress, answers questions appropriately - Head Head exam: Present: atraumatic, normocephalic - Eye Eye exam: Present: PERRL, conjuntiva pink, sclera anicteric Pupils: Present: PERRL - Neck Neck exam general surgery: Present: supple, trachea midline. Absent: lymphadenopathy - Respiratory Respiratory exam: Present: CTAB. Absent: accessory muscle use, rales, rhonchi, wheezes - Cardiovascular Cardiovascular exam: Present: RRR, +S1, +S2. Absent: diastolic murmur, gallop, rubs, systolic murmur - GI/Abdominal GI/Abdominal exam: Present: normal bowel sounds, soft, no peritoneal signs. Absent: distended, tenderness - Extremities Exam Extremities exam: Present: warm, radial pulses palpable and symmetrical. Absent : calf tenderness, cyanotic, pedal edema - Neurological Exam Neurological exam: Present: CN II-XII intact, oriented X3, no focal deficits. Absent: pronater drift, facial droop, speech deficit - Skin Skin exam: Present: dry, intact Additional comments: left knee incision mod amt of serous drainage, with 2 blisters lateral. bruising scattered from ankle to groin area. mod amt of edema with warmth and redness from lower thigh area to mid calf. Internal Medicine: Result - Labs CBC & Chem 7: 08/09/17 05:45 08/09/17 05:45 Labs: reviewed and will repeat CBC, CMP tomorrow. Short CBC 08/09/17 Range/Units 05:45 WBC 4.9 (4.3-11.1) K/mcL Hgb 10.1 L (12.9-16.9) g/dL Hct 30.1 L (37.5-50.1) % Plt Count 194 (140-400) K/mcL Neutrophils # 3.5 (1.6-8.9) K/mcL BMP 08/09/17 05:45 Sodium 137 Potassium 4.6 H D Chloride 97 L Carbon Dioxide 31 H BUN 30 H Creatinine 0.99 Glucose 109 H Calcium 9.2 Liver Function 08/09/17 Range/Units 05:45 Total Bilirubin 1.7 H (0.2-1.2) mg/dL AST 26 (5-34) Units/L ALT 19 (0-55) Units/L Alkaline Phosphatase 83 (38-126) Units/L Albumin 3.0 L (3.5-5.0) g/dL - ABG Interpretation ABG results: PT/INR, D-dimer PT 13.7 Seconds (9.4-12.1) H 08/04/17 04:30 - VTE Documentation of Mechanical Device: Graduated compression elastic hosiery Consult Discharge Plan - Plan Referrals: Carl Camp MD [Primary Care Provider] -
[2017-08-09] MEDS: Loratadine 10 MG TABLET PO SCH (13:19)
[2017-08-09] MEDS: Doxycycline 100 MG CAPSULE PO SCH ×2 (13:37→20:27)
[2017-08-09] MEDS: Aspirin 81 MG TAB.CHEW PO SCH (20:27)
[2017-08-09] MEDS: Latanoprost 2.5 ML BOTTLE BOTH EYES SCH (20:27)
[2017-08-09] MEDS: ALPRAZolam 0.25 MG TABLET PO PRN (20:28)
[2017-08-09] MEDS ORDERED: Doxycycline 100 MG CAPSULE PO SCH (21:00)
[2017-08-10] MEDS: Acetaminophen 325 MG TABLET PO SCH ×3 (01:03→16:05)
[2017-08-10] MEDS: Methocarbamol 500 MG TABLET PO SCH ×3 (01:03→16:05)
[2017-08-10 05:23] LABS: Basophils % 0.6 %; Eosinophils # 0.1 K/mcL (0.0-0.6); Eosinophils % 1.6 %; Hematocrit 30.4 % (37.5-50.1); Hemoglobin 10.1 g/dL (12.9-16.9); Immature Granulocytes % 1.8 % (0-4); Lymphocytes # 0.7 K/mcL (0.6-4.6); Lymphocytes % 14.8 %; Mean Corpuscular HGB Conc 33.2 g/dL (31.6-35.5); Mean Corpuscular Hemoglobin 30.8 pg (28.0-33.3); Mean Corpuscular Volume 92.7 fL (83.0-100.0); Mean Platelet Volume 8.9 fL (9.4-12.4); Monocytes # 0.4 K/mcL (0.0-1.3); Monocytes % 8.7 %; Neutrophils # 3.6 K/mcL (1.6-8.9); Platelet Count 215 K/mcL (140-400); Red Blood Count 3.28 M/mcL (4.19-5.50); Red Cell Distribution Width 14.6 % (11.5-14.5); Segmented Neutrophils % 72.5 %
[2017-08-10] MEDS: *HR* OxyCODONE Immed Rel 5 MG TABLET PO PRN ×3 (06:04→21:57)
[2017-08-10] MEDS: amLODIPine 5 MG TABLET PO SCH (07:52)
[2017-08-10] MEDS: Multivit/Ca/Min/Fe/FA 1 TAB TABLET PO SCH (07:53)
[2017-08-10] MEDS: Fluticasone Propionate Nasal 50 MCG/SPRAY BOTTLE NS SCH (07:53)
[2017-08-10] MEDS: Doxycycline 100 MG CAPSULE PO SCH ×2 (07:53→20:22)
[2017-08-10] MEDS: Sennosides 8.6 MG TABLET PO SCH (07:54)
[2017-08-10] MEDS: (Umeclidinium Bromide [Incruse Ellipta] 62.5 MCG) IH SCH (07:54)
[2017-08-10] MEDS: Budesonide/Formoterol 160/4.5 MDI IH SCH ×2 (09:55→20:21)
--- NOTE | 2017-08-10 11:13 | Internal Med Progress Note ---
Date of Encounter: 08/10/17 Time of Encounter: 11:10 - Assessment and plan (1) Status post total left knee replacement Current Visit: Yes Status: Acute Assessment and plan: -Left knee incision moderate amount of ecchymosis and swelling, which has improved over the last several days. will order atb and venous doppler. We will continue with current medications and icing. Patient to continue with physical therapy. Patient did not prepare for discharge possibly tomorrow. (2) BPH (benign prostatic hyperplasia) Current Visit: Yes Status: Acute Assessment and plan: Patient with symptoms that relate to a history of BPH. Patient currently on Flomax but states he has never seen a urologist in the past. Elevated PSA at 8+ . No signs of urinary obstruction, but does continue to complain of nocturia. Will defer to outpatient management of this elevated PSA Qualifiers: Lower urinary tract symptom presence: symptoms present Lower urinary tract symptom detail: nocturia Qualified Code(s): N40.1 - Benign prostatic hyperplasia with lower urinary tract symptoms; R35.1 - Nocturia; R35.1 - Nocturia (3) COPD (chronic obstructive pulmonary disease) Current Visit: No Status: Chronic Assessment and plan: -Patient denies any shortness of breath or productive cough. We will continue on current medications Qualifiers: COPD type: emphysema Emphysema type: unspecified Qualified Code(s): J43.9 - Emphysema, unspecified (4) CHF (congestive heart failure) Current Visit: No Status: Acute Assessment and plan: No acute issues. Patient's BMP less than 400 and recent echo was reviewed, requiring no acute treatment. We will continue with current plan of care and medications. Progressing well with physical therapy with no complaints of dyspnea. Qualifiers: Congestive heart failure type: diastolic Congestive heart failure chronicity: unspecified congestive heart failure chronicity Qualified Code(s) : I50.30 - Unspecified diastolic (congestive) heart failure (5) Hypertension Current Visit: No Status: Chronic Assessment and plan: Vital signs are stable. continue current meds Qualifiers: Hypertension type: essential hypertension Qualified Code(s): I10 - Essential (primary) hypertension - Subjective Interval history: Patient states that continues with pain to his left knee, which he believes is mostly due to the echymosis and edema. States that it well controlled with current medications. Pt states that he feels he will be ok with discharge tomorrow to home. States that his urinary hesitation has improved, but continues to have nocturia. - Constitutional Vitals: Temp Pulse Resp BP Pulse Ox 98.1 F 71 16 129/68 92 08/10/17 07:00 08/10/17 07:00 08/10/17 07:00 08/10/17 07:00 08/10/17 07:00 General appearance: Present: A&O X 3, pleasant, no acute distress, answers questions appropriately - Head Head exam: Present: atraumatic, normocephalic - Eye Eye exam: Present: PERRL, conjuntiva pink, sclera anicteric Pupils: Present: PERRL - Neck Neck exam general surgery: Present: supple, trachea midline. Absent: lymphadenopathy - Respiratory Respiratory exam: Present: CTAB. Absent: accessory muscle use, rales, rhonchi, wheezes - Cardiovascular Cardiovascular exam: Present: RRR, +S1, +S2. Absent: diastolic murmur, gallop, rubs, systolic murmur - GI/Abdominal GI/Abdominal exam: Present: normal bowel sounds, soft, no peritoneal signs. Absent: distended, tenderness - Extremities Exam Extremities exam: Present: warm, radial pulses palpable and symmetrical. Absent : calf tenderness, cyanotic, pedal edema Additional comments: Left knee continues to be slightly swollen and continues to have ecchymosis noted along lateral sides. Ecchymosis has been diminishing over the past several days. No limits to range of motion noted. Surgical incision appears healthy - Neurological Exam Neurological exam: Present: CN II-XII intact, oriented X3, no focal deficits. Absent: pronater drift, facial droop, speech deficit - Skin Skin exam: Present: dry, intact Internal Medicine: Result - Labs CBC & Chem 7: 08/10/17 04:45 08/09/17 05:45 Labs: Short CBC 08/10/17 Range/Units 04:45 WBC 4.9 (4.3-11.1) K/mcL Hgb 10.1 L (12.9-16.9) g/dL Hct 30.4 L (37.5-50.1) % Plt Count 215 (140-400) K/mcL Neutrophils # 3.6 (1.6-8.9) K/mcL PSA 8.5 - ABG Interpretation ABG results: PT/INR, D-dimer PT 13.7 Seconds (9.4-12.1) H 08/04/17 04:30 - VTE Documentation of Mechanical Device: Graduated compression elastic hosiery Consult Discharge Plan - Plan Referrals: Carl Camp MD [Primary Care Provider] -
[2017-08-10] MEDS: Loratadine 10 MG TABLET PO SCH (11:54)
[2017-08-10] MEDS: Latanoprost 2.5 ML BOTTLE BOTH EYES SCH (20:22)
[2017-08-10] MEDS: Aspirin 81 MG TAB.CHEW PO SCH (20:22)
[2017-08-10] MEDS: ALPRAZolam 0.25 MG TABLET PO PRN (21:57)
[2017-08-11] MEDS: Methocarbamol 500 MG TABLET PO SCH ×2 (00:15→09:03)
[2017-08-11] MEDS: Acetaminophen 325 MG TABLET PO SCH ×2 (00:16→09:01)
[2017-08-11] MEDS: *HR* OxyCODONE Immed Rel 5 MG TABLET PO PRN ×2 (04:37→13:29)
[2017-08-11 07:20] VITALS: BP 109/55
[2017-08-11] MEDS: Fluticasone Propionate Nasal 50 MCG/SPRAY BOTTLE NS SCH (08:59)
[2017-08-11] MEDS: Budesonide/Formoterol 160/4.5 MDI IH SCH (08:59)
[2017-08-11] MEDS: (Umeclidinium Bromide [Incruse Ellipta] 62.5 MCG) IH SCH (09:02)
[2017-08-11] MEDS: Multivit/Ca/Min/Fe/FA 1 TAB TABLET PO SCH (09:03)
[2017-08-11] MEDS: Doxycycline 100 MG CAPSULE PO SCH (09:03)
[2017-08-11] MEDS: amLODIPine 5 MG TABLET PO SCH (09:03)
[2017-08-11] MEDS: Sennosides 8.6 MG TABLET PO SCH (09:03)
--- NOTE | 2017-08-11 11:40 | Discharge Summary ---
Date of Encounter: 08/11/17 Time of Encounter: 11:37 - Discharge Diagnosis (1) Status post total left knee replacement Priority: Primary Status: Acute Comments: Left knee continues with slight swelling and ecchymosis. Ecchymosis has been fading over the past several days during this admission. No limitations on range of motion on left leg. Surgical wounds appear to be healing well. Patient instructed to continue to mobilize (2) BPH (benign prostatic hyperplasia) Priority: Secondary Status: Chronic Comments: Patient had complaints of urinary hesitation and nocturia during this admission. PSA was obtained which showed a reading of 8.5. Bladder scan was obtained post void which showed no residual. Patient currently on Flomax. Patient instructed to follow up with his primary care physician or with a urologist after discharge. No acute issues at time of discharge Qualifiers: Lower urinary tract symptom presence: symptoms present Lower urinary tract symptom detail: nocturia Qualified Code(s): N40.1 - Benign prostatic hyperplasia with lower urinary tract symptoms; R35.1 - Nocturia; R35.1 - Nocturia (3) COPD (chronic obstructive pulmonary disease) Priority: Secondary Status: Chronic Comments: No acute issues during this admission. Patient denies any dyspnea or productive cough. Lungs are clear. Patient to continue with his current home medications Qualifiers: COPD type: emphysema Emphysema type: unspecified Qualified Code(s): J43.9 - Emphysema, unspecified (4) CHF (congestive heart failure) Priority: Secondary Status: Acute Comments: No acute issues. Patient denies any dyspnea, chest discomforts or palpitations. Lungs have remained clear. Patient to continue with his current home medications and follow up with PCP. Qualifiers: Congestive heart failure type: diastolic Congestive heart failure chronicity: unspecified congestive heart failure chronicity Qualified Code(s) : I50.30 - Unspecified diastolic (congestive) heart failure (5) Hypertension Priority: Secondary Status: Chronic Comments: Vital signs have remained stable during this admission. Patient to continue with home medications. Qualifiers: Hypertension type: essential hypertension Qualified Code(s): I10 - Essential (primary) hypertension - Discharge Medications Home Medications: Albuterol Sulfate [Proair Hfa] 2 puff IH Q4H PRN 04/13/16 [History] Amlodipine Besylate 10 mg PO DAILY 04/13/16 [History] Aspirin 81 mg PO 2100 04/13/16 [History] Atenolol [Tenormin] 50 mg PO TID 04/13/16 [History] Budesonide/Formoterol 160/4.5 [Symbicort 160/4.5] 2 puff IH BIDR 04/13/16 [ History] Fluticasone Propionate [Flonase Allergy Relief] 1 spray NS DAILY 04/13/16 [ History] Lisinopril/Hydrochlorothiazide [Zestoretic 10-12.5 mg Tablet] 1 each PO DAILY [History] Loratadine [Claritin] 10 mg PO 1200 04/13/16 [History] Montelukast Sodium 10 mg PO DAILY 04/13/16 [History] Multivitamin [Multivitamins] 1 each PO DAILY 04/13/16 [History] Naproxen Sodium [Aleve] 220 mg PO Q6HR PRN 04/13/16 [History] Ipratropium/Albuterol Neb [Duoneb] 3 ml IH Q6HR PRN 04/14/16 [History] Allopurinol [Zyloprim] 300 mg PO 1200 08/03/17 [History] Latanoprost [Xalatan] 2.5 ml OP 2100 08/03/17 [History] Tamsulosin HCl [Flomax] 0.4 mg PO HS 08/03/17 [History] Timolol [Betimol] 1 drop OP DAILY 08/03/17 [History] Umeclidinium [place] [Incruse Ellipta] 62.5 mcg IH DAILY 08/03/17 [History] Allergies/Adverse Reactions: 3 Allergy/AdvReac Type Severity Reaction Status Date / Time No Known Allergies Allergy Unverified 12/29/15 13:48 Procedures/tests Complete & Pending: Procedures Performed prior 72 hours Category Date Time Status Venous Doppler [EV venous imaging LE LT] Routine Y 08/09/17 14:34 Completed Date of admission: 08/03/17 11:51 Primary care physician: Carl Camp, Consults: 08/03/17 14:12 Consult to Occupational Therapy [CONS] Routine Comment: Evaluate, develop and implement POC Reason for Consult: s/p tkr Consult to Physical Medicine/Rehab [CONS] Routine Reason for Consult: s/p tkr Call Completed: No Consult to Physical Therapy [CONS] Routine Comment: Evaluate, develop and implement POC Reason for Consult: s/p tkr Consult to Recreational Therapy [CONS] Routine Comment: Evaluate, develop and implement POC Consult to [employer] [CONS] Routine Reason for SW Consult: s/p knee Discharging clinician: Jan Durant Anticipated date of discharge: 08/11/17 - Patient Status Disposition: Home Health Service Condition: Good Functional capacity at discharge: uses cane/walker Overall status at discharge: patient is progressing back to baseline - Discharge Instructions Follow Up With: Carl Camp MD [Primary Care Provider] - 08/18/17 10:00 am (follow up with Dr. Baljinder de santiago ) - Diet and Activity Activity: ambulate only with your walker, as per physical therapy, increase activity as tolerated Diet: advance to your usual diet, low salt diet Hospital course: Mr. Terrazas is a 82 year old male Was admitted for PT/OT rehabilitation on a left total knee replacement. Patient had multiple significant comorbidities, to include CHF, COPD and hypertension. Patient expressed concerns at time of admission about urinary hesitation and stated he experiences nocturia. PSA was obtained which was 8.5. A post void bladder scan showed no residual. Over the following several days patient's states that his urinary hesitation had resolved. Patient's left knee had moderate swelling and ecchymosis at time of admission. Over the length of his stay the swelling continued to resolve and ecchymosis to fade. Patient continue to use continuous icing on the left knee and mobilized well with PT/ OT. Patient progressed well with PT/OT, but continues to use a walker during ambulation to reduce his fall risk. No other acute issues occurred during this admission. Patient was discharged with his pain controlled with oral medications. Patient recommended to follow-up with his primary care physician and orthopedics. Time spent discussing smoking cessation with patient: 3 to 10 minutes - Time Spent with Patient Total time spent providing and/or coordinating discharge services: Less than 30 minutes - Constitutional Vitals: Temp Pulse Resp BP Pulse Ox 98.5 F 100 20 109/55 94 08/11/17 07:19 08/11/17 07:19 08/11/17 07:19 08/11/17 07:19 08/11/17 07:19 General appearance: Present: A&O X 3, pleasant, no acute distress, answers questions appropriately - Head Head exam: Present: atraumatic, normocephalic - Eye Eye exam: Present: PERRL, conjuntiva pink, sclera anicteric Pupils: Present: PERRL - Neck Neck exam general surgery: Present: supple, trachea midline. Absent: lymphadenopathy - Respiratory Respiratory exam: Present: CTAB. Absent: accessory muscle use, rales, rhonchi, wheezes - Cardiovascular Cardiovascular exam: Present: RRR, +S1, +S2. Absent: diastolic murmur, gallop, rubs, systolic murmur - GI/Abdominal GI/Abdominal exam: Present: normal bowel sounds, soft, no peritoneal signs. Absent: distended, tenderness - Extremities Exam Extremities exam: Present: warm, radial pulses palpable and symmetrical. Absent : calf tenderness, cyanotic, pedal edema Additional comments: Left knee continues with slight swelling and fading ecchymosis. Surgical incisions appear healthy and intact. - Neurological Exam Neurological exam: Present: CN II-XII intact, oriented X3, no focal deficits. Absent: pronater drift, facial droop, speech deficit - Skin Skin exam: Present: dry, intact - VTE Documentation of Mechanical Device: Graduated compression elastic hosiery
--- NOTE | 2017-08-11 11:52 | Physician Discharge Referral ---
Home Health/Hosp Referral Info Transfer to: Home Health Provider in Charge Post Discharge: PCP - Diagnosis (1) Status post total left knee replacement Priority: Primary Status: Acute (2) BPH (benign prostatic hyperplasia) Priority: Secondary Status: Chronic (3) COPD (chronic obstructive pulmonary disease) Priority: Secondary Status: Chronic (4) CHF (congestive heart failure) Priority: Secondary Status: Chronic (5) Hypertension Priority: Secondary Status: Chronic - Respiratory Orders Smoking Cessation: Smoking cessation has been advised. For more information, call the [employer] Tobacco Quit Line at 6-012-MZRD-NOW. - Dressing/Wound Care Site: left knee Type of Dressing/Treatments w/Frequency: sugical incision for TKR. Leave open to air and monitor healing. F/u with Orthopedics - Diet/Nutrition Diet/Nutrition Orders: Regular, No Added Salt (CRISPIN), Cardiac - Activity Activity Orders: Up ad eric, Walker - Services Needed Following services are medically necessary services: Nursing, Physical Therapy, Occupational Therapy - Transfer Medications Home Medications: Albuterol Sulfate [Proair Hfa] 2 puff IH Q4H PRN 04/13/16 [History] Amlodipine Besylate 10 mg PO DAILY 04/13/16 [History] Aspirin 81 mg PO 2100 04/13/16 [History] Atenolol [Tenormin] 50 mg PO TID 04/13/16 [History] Budesonide/Formoterol 160/4.5 [Symbicort 160/4.5] 2 puff IH BIDR 04/13/16 [ History] Fluticasone Propionate [Flonase Allergy Relief] 1 spray NS DAILY 04/13/16 [ History] Lisinopril/Hydrochlorothiazide [Zestoretic 10-12.5 mg Tablet] 1 each PO DAILY [History] Loratadine [Claritin] 10 mg PO 1200 04/13/16 [History] Montelukast Sodium 10 mg PO DAILY 04/13/16 [History] Multivitamin [Multivitamins] 1 each PO DAILY 04/13/16 [History] Naproxen Sodium [Aleve] 220 mg PO Q6HR PRN 04/13/16 [History] Ipratropium/Albuterol Neb [Duoneb] 3 ml IH Q6HR PRN 04/14/16 [History] Allopurinol [Zyloprim] 300 mg PO 1200 08/03/17 [History] Latanoprost [Xalatan] 2.5 ml OP 2100 08/03/17 [History] Tamsulosin HCl [Flomax] 0.4 mg PO HS 08/03/17 [History] Timolol [Betimol] 1 drop OP DAILY 08/03/17 [History] Umeclidinium [place] [Incruse Ellipta] 62.5 mcg IH DAILY 08/03/17 [History] Allergies/Adverse Reactions: 3 Allergy/AdvReac Type Severity Reaction Status Date / Time No Known Allergies Allergy Unverified 12/29/15 13:48 Certification: Further, I certify that my clinical findings support that this patient is homebound (i.e. absences from home require considerable and taxing effort and are for medical reasons or catholic services or infrequently or short duration when for other reasons) because: Homebound Reason: Patient requires assistance of a person or device to safely leave home, Post-surgery restriction and or conditions limit ability to leave home, Leaving home requires considerable and taxing effort due to condition Attestation: My signature below is to certify that this patient is under my care and that I, or nurse practitioner, or a physician's assistant in nursing working with me, has a face-to -face encounter with this patient.
[2017-08-11] MEDS: Loratadine 10 MG TABLET PO SCH (13:20)
== END 2017-08-11 14:50 | disposition home health service (06) | DRG 560 ==
LOC: INPGRE 08-03 11:51
PROVIDERS: ADMIT Internal Medicine; ATTEND Internal Medicine